=== PATIENT | male | born 1965 | race Caucasian/White ===

== ENCOUNTER 2024-08-06 15:49 | Inpatient (IN) | payer BC ==
[~2024-08-06] VITALS: Ht 172.7 cm; Wt 104.9 kg
[2024-08-06 17:26] LABS: HEMATOCRIT 51 % (39-51); HEMOGLOBIN 17.6 g/dL (13.5-17.5); MEAN CORPUSCULAR HEMOGLOBIN 33 PG (26.0-33.0); MEAN CORPUSCULAR VOLUME 95 fL (80-96); RED BLOOD CELL COUNT(AUTO) 5.39 MIL/uL (4.5-6.0); WHITE BLOOD COUNT (AUTO) 16.4 K/uL (4.3-11.0)
[2024-08-06] MEDS ORDERED: FAMOTIDINE/PF INJ 20 MG/2 ML VIAL IV ONE (17:26)
[2024-08-06] MEDS ORDERED: ONDANSETRON HCL/PF 4 MG/2 ML VIAL ONE (17:26)
[2024-08-06 17:27] LABS: CALCIUM, SERUM 10.3 mg/dL (8.5-10.1); CARBON DIOXIDE 32 mmol/L (21-32); CHLORIDE 101 mmol/L (98-107); CREATININE 1.5 mg/dL (0.6-1.3); GLUCOSE 118 mg/dL (74-106); MEAN CORPUSCULAR HGB CONC 35 g/dl (31.0-36.0); PLATELET COUNT (AUTO) 230 K/uL (150-450); POTASSIUM 4.5 mmol/L (3.5-5.1); SODIUM SERUM 141 mmol/L (136-145); UREA NITROGEN, BLOOD 16 mg/dL (7-18)
[2024-08-06 17:28] LABS: BASOPHILS % (AUTO) 1.6 % (0.0-2.0); EOSINOPHILS % (AUTO) 0.2 % (0.0-6.0); LYMPHOCYTES % (AUTO) 3.8 % (20.0-44.0); MONOCYTES % (AUTO) 5.4 % (2.0-12.0); PLATELET ESTIMATE ADEQUATE
[2024-08-06] MEDS ORDERED: IV NS 0.9% 250 ML IV ONE ×2 (17:31→17:53)
[2024-08-06] MEDS ORDERED: IOHEXOL-350 100 ML VIAL IV ONE ×2 (17:31→17:53)
[2024-08-06] MEDS: IV NS 0.9% 1,000 ML BAG IV ONE ×2 (17:35→20:30)
[2024-08-06] MEDS ORDERED: AMLODIPINE BESYLATE 5 MG TABLET ONE (17:38)
[2024-08-06] MEDS ORDERED: HYDROCHLOROTHIAZIDE 25 MG TABLET ONE (17:38)
[2024-08-06] MEDS: FAMOTIDINE/PF INJ 20 MG/2 ML VIAL IV ONE (17:38)
[2024-08-06 17:39] LABS: ALANINE AMINOTRANSFERASE 29 U/L (12-78); ALBUMIN 4.2 g/dL (3.4-5.0); ALKALINE PHOSPHATASE 50 U/L (46-116); ASPARTATE AMINOTRANSFERASE 45 U/L (15-37); BILIRUBIN,DIRECT 0.5 mg/dL (0.0-0.2); BILIRUBIN,TOTAL 1.8 mg/dL (0.2-1.0); NT-PRO BNP 504 pg/mL (0-125); TOTAL PROTEIN, SERUM 8.4 g/dL (6.4-8.2)
[2024-08-06] MEDS: ONDANSETRON HCL/PF 4 MG/2 ML VIAL IVP ONE (17:40)
[2024-08-06] MEDS: AMLODIPINE BESYLATE 5 MG TABLET PO ONE (17:40)
[2024-08-06] MEDS: HYDROCHLOROTHIAZIDE 25 MG TABLET PO ONE (17:44)
[2024-08-06] MEDS: MORPHINE SULFATE INJ 2 MG/ML DISP.SYRIN IV ONE (17:45)
[2024-08-06] MEDS ORDERED: CT SWABBABLE VALVE TRANS SET 1 EA INFUS.SET MC ONE (17:53)
[2024-08-06 18:21] LABS: LIPASE 1634 U/L (16-77)
[2024-08-06] MEDS ORDERED: DOLU1TAB2 PO (19:40)
[2024-08-06] MEDS ORDERED: HYDR25TA4 PO (19:40)
[2024-08-06] MEDS ORDERED: SILD100T70 PO (19:40)
[2024-08-06] MEDS ORDERED: PANT40TA49 PO (19:40)
[2024-08-06] MEDS ORDERED: METH500T6 PO (19:40)
[2024-08-06] MEDS ORDERED: GABA300C PO (19:40)
[2024-08-06] MEDS ORDERED: IBUP-1955 PO (19:40)
[2024-08-06] MEDS ORDERED: AMLO-212 PO (19:40)
[2024-08-06] MEDS ORDERED: hydrALAZINE HCL 50 MG TABLET ONE (20:24)
[2024-08-06] MEDS: hydrALAZINE HCL 25 MG TABLET PO ONE (20:28)
[2024-08-06] MEDS: KETOROLAC TROMETHAMINE 15 MG/ML VIAL IV ONE (20:30)
[2024-08-07] VITALS: BP 203/127; TEMP 98.9; O2SAT 100
[2024-08-07] MEDS ORDERED: ONDANSETRON HCL/PF 4 MG/2 ML VIAL IVP PRN
[2024-08-07] MEDS ORDERED: MAG HYDROX/AL HYDROX/SIMETH 30 ML UDC PO PRN
[2024-08-07] MEDS: CLONIDINE HCL 0.1 MG TABLET PO ONE (00:05)
[2024-08-07] MEDS: IV LR 1000 ML 1,000 ML IV PRN (00:17)
[2024-08-07] MEDS: MORPHINE SULFATE INJ 4 MG/ML DISP.SYRIN IV PRN (00:30)
[2024-08-07] MEDS: hydrALAZINE HCL IV 20 MG VIAL IV PRN (02:05)
[2024-08-07 04:00] VITALS: BP 171/112; TEMP 98.9; O2SAT 100
[2024-08-07 07:28] LABS: BASOPHILS % (AUTO) 0.1 % (0.0-2.0); EOSINOPHILS # (AUTO) 0.1 K/uL (0.0-0.7); EOSINOPHILS % (AUTO) 0.5 % (0.0-6.0); HEMATOCRIT 48 % (39-51); HEMOGLOBIN 16.1 g/dL (13.5-17.5); LYMPHOCYTES # (AUTO) 0.7 K/uL (0.8-4.8); MEAN CORPUSCULAR HEMOGLOBIN 32 PG (26.0-33.0); MEAN CORPUSCULAR HGB CONC 34 g/dl (31.0-36.0); MEAN CORPUSCULAR VOLUME 94 fL (80-96); MONOCYTES % (AUTO) 5.8 % (2.0-12.0); NEUTROPHILS # (AUTO) 15.6 K/uL (1.8-8.9); NEUTROPHILS % (AUTO) 89.6 % (43.0-81.0); PLATELET COUNT (AUTO) 201 K/uL (150-450); RED BLOOD CELL COUNT(AUTO) 5.04 MIL/uL (4.5-6.0); RED CELL DISTRIBUTION WIDTH 15.5 % (11.5-15.0); WHITE BLOOD COUNT (AUTO) 17.4 K/uL (4.3-11.0)
[2024-08-07 08:05] VITALS: BP 184/115; TEMP 98.8; O2SAT 99
[2024-08-07] MEDS: PANTOPRAZOLE 40 MG TABLET.DR PO SCH (08:28)
[2024-08-07 08:30] LABS: CALCIUM, SERUM 9.3 mg/dL (8.5-10.1); CREATININE 1.2 mg/dL (0.6-1.3); MAGNESIUM 1.3 mg/dL (1.8-2.4); PHOSPHORUS 2.8 mg/dL (2.5-4.9); POTASSIUM 3.8 mmol/L (3.5-5.1)
[2024-08-07] MEDS: AMLODIPINE BESYLATE 5 MG TABLET PO SCH (08:35)
[2024-08-07] MEDS: HYDROCHLOROTHIAZIDE 25 MG TABLET PO SCH (08:35)
[2024-08-07] MEDS: KETOROLAC TROMETHAMINE INJ 30 MG/ML VIAL IV PRN (10:08)
[2024-08-07] MEDS: MAGNESIUM OXIDE 400 MG TABLET PO ONE (10:36)
[2024-08-07 12:04] VITALS: BP 156/95; TEMP 99.1; O2SAT 98
[2024-08-07 16:05] VITALS: BP 171/106; TEMP 97.7; O2SAT 99
[2024-08-07 20:00] VITALS: BP 153/103; TEMP 98.6; O2SAT 97
[2024-08-07] MEDS: MAGNESIUM HYDROXIDE 30 ML UDC PO PRN (20:18)
[2024-08-07] MEDS: GABAPENTIN 300 MG CAPSULE PO PRN (20:37)
[2024-08-08] VITALS: BP 160/101; TEMP 99.3; O2SAT 98
[2024-08-08 04:00] VITALS: BP 157/90; TEMP 99.9; O2SAT 97
[2024-08-08] MEDS: ACETAMINOPHEN 325 MG TABLET PO PRN (04:28)
[2024-08-08 07:01] LABS: APPEARANCE,URINE CLEAR (CLEAR); BILIRUBIN,URINE 1+ (NEGATIVE); BLOOD, URINE 1+ Ery/uL (NEGATIVE); COLOR,URINE DARK YELLOW (YELLOW); KETONES,URINE 1+ mg/dL (NEGATIVE); LEUKOCYTE ESTERASE ,URINE NEGATIVE (NEGATIVE); NITRITE, URINE POSITIVE (NEGATIVE); PH,URINE 6.5 (5.0-8.0); PROTEIN,URINE 2+ mg/dl (NEGATIVE); UGLUCOSE NEGATIVE (NEGATIVE)
[2024-08-08 07:26] LABS: BASOPHILS % (AUTO) 0.2 % (0.0-2.0); EOSINOPHILS # (AUTO) 0.1 K/uL (0.0-0.7); EOSINOPHILS % (AUTO) 1.4 % (0.0-6.0); HEMATOCRIT 42 % (39-51); HEMOGLOBIN 14.5 g/dL (13.5-17.5); LYMPHOCYTES # (AUTO) 0.7 K/uL (0.8-4.8); LYMPHOCYTES % (AUTO) 6.6 % (20.0-44.0); MEAN CORPUSCULAR HEMOGLOBIN 32 PG (26.0-33.0); MEAN CORPUSCULAR HGB CONC 34 g/dl (31.0-36.0); MEAN CORPUSCULAR VOLUME 94 fL (80-96); MONOCYTES # (AUTO) 0.7 K/uL (0.1-1.30); MONOCYTES % (AUTO) 6.6 % (2.0-12.0); NEUTROPHILS # (AUTO) 8.7 K/uL (1.8-8.9); NEUTROPHILS % (AUTO) 85.2 % (43.0-81.0); PLATELET COUNT (AUTO) 167 K/uL (150-450); RED CELL DISTRIBUTION WIDTH 15.8 % (11.5-15.0); WHITE BLOOD COUNT (AUTO) 10.3 K/uL (4.3-11.0)
[2024-08-08 07:48] LABS: BILIRUBIN,DIRECT 0.4 mg/dL (0.0-0.2); BILIRUBIN,TOTAL 1.2 mg/dL (0.2-1.0); TOTAL PROTEIN, SERUM 6.7 g/dL (6.4-8.2)
[2024-08-08 07:54] LABS: CALCIUM, SERUM 8.9 mg/dL (8.5-10.1); CREATININE 1.3 mg/dL (0.6-1.3); MAGNESIUM 1.4 mg/dL (1.8-2.4); PHOSPHORUS 2.6 mg/dL (2.5-4.9)
[2024-08-08 08:15] VITALS: BP 155/93; TEMP 98.2; O2SAT 96
[2024-08-08 11:25] LABS: POTASSIUM 3.6 mmol/L (3.5-5.1)
[2024-08-08 11:48] LABS: ADD URINE CULTURE YES; BACTERIA,URINE Moderate /HPF (None Seen)
[2024-08-08 11:49] LABS: MUCUS,URINE Moderate /LPF (None Seen); SQUAMOUS EPITHELIAL CELL,UR Moderate /HPF (None Seen)
[2024-08-08 11:51] LABS: EOSINOPHIL,URINE None Seen
[2024-08-08 12:15] VITALS: BP 187/104; TEMP 98.4; O2SAT 97
[2024-08-08] MEDS: MAGNESIUM OXIDE 400 MG TABLET PO ONE (13:22)
[2024-08-08 16:10] VITALS: BP 163/95; TEMP 98.2; O2SAT 98
== END 2024-08-08 17:50 | disposition home or self-care (01) | DRG 439 ==
LOC: ER 15:56 → TELE1 22:31
PROVIDERS: ADMIT Nurse Practitioner Family; ATTEND Internal Medicine
DX: K85.20 Alcohol induced acute pancreatitis without necrosis or infection (principal); N17.9 Acute kidney failure, unspecified; E83.52 Hypercalcemia; I16.0 Hypertensive urgency; I10 Essential (primary) hypertension; K21.9 Gastro-esophageal reflux disease without esophagitis; D75.1 Secondary polycythemia; E83.9 Disorder of mineral metabolism, unspecified; R10.9 Unspecified abdominal pain; R74.01 Elevation of levels of liver transaminase levels; E80.6 Other disorders of bilirubin metabolism; E78.5 Hyperlipidemia, unspecified; D72.829 Elevated white blood cell count, unspecified; E86.9 Volume depletion, unspecified; F10.10 Alcohol abuse, uncomplicated; I77.810 Thoracic aortic ectasia
CPT/HCPCS: 36415; 71045-TC; 80048-TC; 80061-TC; 80076-TC; 81001; 83690-TC; 83735-TC; 83880; 84100-TC; 84484-TC; 85025-TC; 97110-TC; 97116-TC; A4223; G0378; J0360; J1308; J1885; J2270; J2405; J7030; J7050; J7120; Q9967